=== PATIENT | female | born 1960 | race African-American/Black ===

== ENCOUNTER 2023-01-22 09:42 | Day surgery (SDC) | payer OTHER ==
[~2023-01-22] VITALS: Ht 154.9 cm; Wt 83.9 kg
[2023-01-22] MEDS ORDERED: MIDAZOLAM 5 MG/5 ML VIAL ONE (12:03)
[2023-01-22] MEDS ORDERED: diphenhydrAMINE 50 MG/ML VIAL ONE (12:03)
[2023-01-22] MEDS ORDERED: fentaNYL citrate 0.05 MG/ML VIAL ONE (12:03)
[2023-01-22] MEDS: MIDAZOLAM 2 MG/2 ML VIAL IVP ONE (14:18)
[2023-01-22] MEDS: fentaNYL citrate 0.05 MG/ML VIAL IVP ONE (14:19)
[2023-01-22] MEDS: diphenhydrAMINE 50 MG/ML VIAL IVP ONE (14:20)
== END 2023-01-22 13:10 | disposition home or self-care (01) ==
LOC: MDS 09:42 → MMU 09:45 → MDS 13:10
PROVIDERS: ATTEND Internal Medicine Gastroenterology
DX: K74.60 Unspecified cirrhosis of liver (principal); K31.89 Other diseases of stomach and duodenum; B18.2 Chronic viral hepatitis C; F10.10 Alcohol abuse, uncomplicated; F17.210 Nicotine dependence, cigarettes, uncomplicated; I10 Essential (primary) hypertension; M32.9 Systemic lupus erythematosus, unspecified; J45.909 Unspecified asthma, uncomplicated; F41.9 Anxiety disorder, unspecified; F32.A Depression, unspecified; E78.5 Hyperlipidemia, unspecified; Z79.899 Other long term (current) drug therapy
CPT/HCPCS: 43239; 82948; J1200; J2250; J3010